=== PATIENT | male | born 1990 | race Caucasian/White ===

== ENCOUNTER 2018-09-19 17:34 | Emergency (ER) | payer MEDICAID ==
[2018-09-19 17:34] VITALS: BMI 28.0
[2018-09-19] MEDS ORDERED: Sodium Chloride 0.9% 1,000 ML IV STA (18:14)
[2018-09-19] MEDS ORDERED: Atrop/Hyosc/Scopal/PB Elixir (120 ml) PO STA (18:52)
[2018-09-19] MEDS ORDERED: Alum-Mag Hydrox-Simethicone Susp (30 mL) PO STA (18:52)
[2018-09-19 18:55] LABS: BASO # 0.08 K/mm3 (0.0-2.0); BASO % 0.8 % (0.0-3.0); EOS # 0.6 (0.0-0.7); EOS % 5.4 % (1.5-5.0); HEMOGLOBIN 15.4 g/dL (14.0-18.0); LYMPH # 2.5 (1.2-3.4); MEAN CELL VOLUME 88.2 fl (80.0-105.0); MEAN CORPUSCULAR HEMOGLOBIN 29.7 pg (25.0-35.0); MEAN CORPUSCULAR HGB CONC 33.6 g/dl (31.0-37.0); MEAN PLATELET VOLUME 10.6 fl (7.0-11.0); MONO # 0.7 (0.1-0.6); MONO % 6.9 % (1.0-6.0); RBC 5.19 10^6/uL (3.5-6.1); RED CELL DISTRIBUTION WIDTH 13.5 % (11.5-14.5); WHITE BLOOD COUNT 10.2 10^3/uL (4.5-11.0)
[2018-09-19 19:03] LABS: INR 1.05; PARTIAL THROMBOPLASTIN TIME 36.8 Seconds (26.9-38.3); PROTHROMBIN TIME 11.6 SECONDS (9.4-12.5)
[2018-09-19 19:04] LABS: ALB/GLOB RATIO 1.5 (1.1-1.8); ALBUMIN 4.5 g/dL (3.0-4.8); ALT/SGPT 18 U/L (7-56); AST/SGOT 29 U/L (17-59); BLOOD UREA NITROGEN 19 mg/dL (7-21); CALCIUM 9.4 mg/dL (8.4-10.5); GFR NON-AFRICAN AMERICAN > 60; LIPASE 116 U/L (23-300)
[2018-09-19 19:15] VITALS: RESP 18; O2SAT 100
[2018-09-19 19:15] LABS: TROPONIN I 0.02 ng/mL
--- NOTE | 2018-09-19 20:09 | ED PDOC ---
Arrival/HPI - General Chief Complaint: Abdominal Pain Time Seen by Provider: 09/19/18 17:37 Historian: Patient - History of Present Illness Narrative History of Present Illness (Text): 28 y/o male with no significant PMH presents to the ED c/o abdominal pain x 3 days. Pain is sharp and burning, located to epigastrum and RUQ. Has not taken any medication for pain. Tolerating PO per baseline. Denies fever, chills, nausea, vomiting, abdominal pain, back pain, urinary symptoms, testicular pain or swelling, or any other associated symptoms. Past Medical History - Provider Review Nursing Documentation Reviewed: Yes - Infectious Disease Hx of Infectious Diseases: None - Tetanus Immunization Tetanus Immunization: Unknown - Cardiac Hx Cardiac Disorders: No - Pulmonary Hx Asthma: Yes Hx Bronchitis: Yes - Neurological Hx Neurological Disorder: No - HEENT Hx HEENT Disorder: No - Renal Hx Renal Disorder: No - Endocrine/Metabolic Hx Endocrine Disorders: No - Hematological/Oncological Hx Blood Disorders: No - Integumentary Hx Dermatological Disorder: No - Musculoskeletal/Rheumatological Hx Musculoskeletal Disorders: No - Gastrointestinal Hx Gastrointestinal Disorders: No - Genitourinary/Gynecological Hx Genitourinary Disorders: No - Psychiatric Hx Anxiety: Yes Hx Bipolar Disorder: Yes Hx Depression: Yes Hx Emotional Abuse: No Hx Hallucinations: No Hx Panic Disorder: No Hx Post Traumatic Stress Disorder: Yes Hx Psychosis: No Hx Physical Abuse: No Hx Schizophrenia: No Hx Sexual Abuse: No Hx Substance Use: No - Past Surgical History Past Surgical History: No Previous - Anesthesia Hx Anesthesia: No Hx Anesthesia Reactions: No Hx Malignant Hyperthermia: No - Suicidal Assessment Feels Threatened In Home Enviroment: No Family/Social History - Physician Review Nursing Documentation Reviewed: Yes Family/Social History: No Known Family HX Smoking Status: Current Some Days Smoker Hx Alcohol Use: No Hx Substance Use: No Hx Substance Use Treatment: No Allergies/Home Meds Allergies/Adverse Reactions: Allergies grape Allergy (Verified 10/04/15 14:17) RASH seafood Allergy (Uncoded 10/04/15 14:17) ANAPHYLAXIS Review of Systems - Review of Systems Constitutional: Normal. absent: Fevers Eyes: Normal. absent: Vision Changes ENT: Normal. absent: Sore Throat, Sinus Congestion Respiratory: Normal. absent: SOB, Cough Cardiovascular: Normal. absent: Chest Pain, Palpitations, Syncope Gastrointestinal: Abdominal Pain. absent: Stool Changes, Constipation, Diarrhea, Nausea, Vomiting, Appetite Changes Genitourinary Male: Normal. absent: Dysuria, Frequency Musculoskeletal: Normal. absent: Back Pain, Neck Pain Skin: Normal. absent: Rash Neurological: Normal. absent: Headache, Dizziness Physical Exam Vital Signs Reviewed: Yes Vital Signs Temp Pulse Resp BP Pulse Ox 09/19/18 19:14 98.1 F 102 H 18 127/77 100 09/19/18 17:34 98.5 F 119 H 20 143/74 97 Temperature: Afebrile Blood Pressure: Normal Pulse: Tachycardic Respiratory Rate: Normal Appearance: Positive for: Well-Appearing, Non-Toxic, Comfortable Pain Distress: None Mental Status: Positive for: Alert and Oriented X 3 - Systems Exam Head: Present: Atraumatic, Normocephalic Pupils: Present: PERRL Extroacular Muscles: Present: EOMI Conjunctiva: Present: Normal Mouth: Present: Moist Mucous Membranes Neck: Present: Normal Range of Motion. No: Meningeal Signs Respiratory/Chest: Present: Clear to Auscultation, Good Air Exchange. No: Respiratory Distress, Accessory Muscle Use Cardiovascular: Present: Regular Rate and Rhythm, Normal S1, S2, Peripheal Pulses Present Abdomen: Present: Tenderness (RUQ, epigastric), Normal Bowel Sounds. No: Distention, Peritoneal Signs Back: Present: Normal Inspection. No: CVA Tenderness Upper Extremity: Present: Normal Inspection, Normal ROM, NORMAL PULSES, Neurovascularly Intact, Capillary Refill < 2s. No: Cyanosis, Edema, Temperature Abnormalties Lower Extremity: Present: Normal Inspection, NORMAL PULSES, Normal ROM, Neurovascularly Intact, Capillary Refill < 2 s. No: Edema, Temperature Abnormalties Neurological: Present: GCS=15, CN II-XII Intact, Speech Normal, Motor Func Grossly Intact, Normal Sensory Function, Gait Normal Skin: Present: Warm, Dry, Normal Color. No: Rashes Psychiatric: Present: Alert, Oriented x 3, Normal Insight, Normal Concentration, Normal Affect, Normal Mood Medical Decision Making ED Course and Treatment: 09/20/18 03:50 The patient is choosing to leave against medical advice. I have personally explained to the patient that choosing to do so may result in permanent bodily harm, disability, or . I have discussed at great length that without further evaluation and monitoring there may be unforeseen circumstances and/or deterioration causing permanent bodily harm or as a result of their choice. The patient is alert, oriented, and shows the mental capacity to make clear decisions regarding the patients health care at this time. The patient continues to wish to leave against medical advice. In light of the patients decision to leave against medical advice, follow-up has been arranged and the patient is aware of the importance to following up as instructed. The patient has been advised that they should return to the emergency room immediately if they change their mind at any time, or if their condition begins to change or worsen in any way. - Lab Interpretations Lab Results: PT 11.6 SECONDS (9.4-12.5) 09/19/18 18:50 INR 1.05 09/19/18 18:50 APTT 36.8 Seconds (26.9-38.3) 09/19/18 18:50 Troponin I 0.02 ng/mL 09/19/18 18:50 Total Bilirubin 0.4 mg/dL (0.2-1.3) 09/19/18 18:50 AST 29 U/L (17-59) 09/19/18 18:50 ALT 18 U/L (7-56) 09/19/18 18:50 Alkaline Phosphatase 59 U/L (38-126) 09/19/18 18:50 Total Protein 7.5 g/dL (5.8-8.3) 09/19/18 18:50 Albumin 4.5 g/dL (3.0-4.8) 09/19/18 18:50 Globulin 3.0 gm/dL 09/19/18 18:50 Albumin/Globulin Ratio 1.5 (1.1-1.8) 09/19/18 18:50 Lipase 116 U/L (23-300) 09/19/18 18:50 - RAD Interpretation Narrative RAD Interpretations (Text): 09/19/18 20:09 Abdominal US: COMMENTS: The liver is of increased echogenicity without evidence of mass or defect measuring 13.87 x 11.33 cm. There is no intra or extrahepatic biliary ductal dilatation. The common bile duct measures 0.29 cm. The gallbladder is physiologically distended without evidence of calculi. The gallbladder wall is not thickened measuring 0.3 cm and there is no pericholecystic fluid. There is no abdominal ascites. The aorta and inferior vena cava are not visualized. The visualized portions of the pancreas are unremarkable. The spleen is of uniform echo texture and does not appear enlarged measuring 10.95 x 4.45 cm. The right kidney measures 9.98 x 4.66 x 5.09 cm and the left kidney measures 11.08 x 5.8 x 6.37 cm. Both kidneys are free of hydronephrosis. IMPRESSION: Fatty liver. Otherwise the study is unremarkable. Electronically signed on September 19, 2018 7:27:37 PM EDT by: Phil Lujan M.D., M.B.A., Certified By [employer] Trained MRI and CT Specialist Radiology Orders: 09/19/18 18:14 CHEST PORTABLE [RAD] Stat 09/19/18 18:15 ABD & PELVIS IV CONTRAST ONLY [CT] Stat ABDOMEN COMPLETE [US] Stat Lumber Driver: Radiologist - Medication Orders Current Medication Orders: Discontinued Medications Al Hydrox/Mg Hydrox/Simethicone (Maalox Plus 30 Ml) 30 ml PO STAT STA Stop: 09/19/18 18:53 Last Admin: 09/19/18 19:07 Dose: 30 ml Belladonna/Phenobarbital ( Elixir) 5 ml PO STAT STA Stop: 09/19/18 18:53 Last Admin: 09/19/18 19:08 Dose: 5 ml Famotidine (Pepcid) 20 mg IVP STAT STA Stop: 09/19/18 18:15 Last Admin: 09/19/18 19:07 Dose: 20 mg IVP Administration Document 09/19/18 19:07 [facility] (Rec: 09/19/18 19:07 [facility] [id number]) Charges for Administration # of IVP Administrations 1 Sodium Chloride (Sodium Chloride 0.9%) 1,000 mls @ 999 mls/hr IV .Q1H1M STA Stop: 09/19/18 19:14 Last Admin: 09/19/18 19:05 Dose: 999 mls/hr eMAR Start Stop Document 09/19/18 19:05 [facility] (Rec: 09/19/18 19:07 [facility] [id number]) Intravenous Solution Start Date 09/19/18 Start Time 18:30 Lidocaine HCl (Lidocaine 2% Viscous) 15 ml PO STAT STA Stop: 09/19/18 18:53 Last Admin: 09/19/18 19:07 Dose: 15 ml Disposition/Present on Arrival - Present on Arrival Any Indicators Present on Arrival: No History of DVT/PE: No History of Uncontrolled Diabetes: No Urinary Catheter: No History of Decub. Ulcer: No History Surgical Site Infection Following: None - Disposition Have Diagnosis and Disposition been Completed?: Yes Diagnosis: Abdominal pain, Left against medical advice Disposition: AGAINST MEDICAL ADVICE Disposition Time: 20:40 Condition: GUARDED Discharge Instructions (ExitCare): Gastritis, Acute Abdomen (Belly Pain), Leaving Against Medical Advice Additional Instructions: Pepcid every 12 hours as needed Increase fluids Followup with GI within 2 days Followup with primary doctor within 2 days Return to ER with any new/worsening symptoms Prescriptions: Famotidine [Pepcid] 20 mg PO Q12 PRN #14 tab PRN Reason: indigestion Referrals: Lukas Rodriguez MD [Primary Care Provider] - Follow up with primary Gary Cline DO [Staff Provider] - Follow up with primary Forms: [employer] ([place])
[2018-09-19 20:42] VITALS: BP 127/79; PULSE 97; TEMP 98.2
--- NOTE | 2018-09-20 08:53 | RAD ---
Date of service: 09/19/2018 HISTORY: abd pain COMPARISON: 10/04/2015 TECHNIQUE: 1 view obtained. FINDINGS: LUNGS: No active pulmonary disease. PLEURA: No significant pleural effusion identified, no pneumothorax apparent. CARDIOVASCULAR: No aortic atherosclerotic calcification present. Normal cardiac size. No pulmonary vascular congestion. OSSEOUS STRUCTURES: No significant abnormalities. VISUALIZED UPPER ABDOMEN: Normal. OTHER FINDINGS: None. IMPRESSION: No active disease.
--- NOTE | 2018-09-20 10:53 | US ---
Date of service: 09/19/2018 HISTORY: RUQ, epigastric pain COMPARISON: None. TECHNIQUE: Grayscale imaging was performed. FINDINGS: LIVER: Measures 13.8 cm. There is diffuse increased echogenicity of the liver parenchyma. No mass. No intrahepatic bile duct dilatation. GALLBLADDER: There are no gallstones, wall thickening or pericholecystic fluid. The sonographic Luna's sign is negative. COMMON BILE DUCT: Measures 2.9 mm. No stones. No dilatation. PANCREAS: Unremarkable as visualized. No mass. No ductal dilatation. RIGHT KIDNEY: Measures 9.9cm. Normal echogenicity. No calculus, mass, or hydronephrosis. LEFT KIDNEY: Measures 11.0cm. Normal echogenicity. No calculus, mass, or hydronephrosis. SPLEEN: Normal in size and contour. No mass. AORTA: No aneurysmal dilatation. IVC: Unremarkable. OTHER FINDINGS: None. IMPRESSION: Fatty liver. No cholelithiasis or biliary dilatation. A preliminary report was provided by [employer].
== END 2018-09-19 20:40 | disposition left against medical advice (07) ==
LOC: ED 17:34
DX: R10.9 Unspecified abdominal pain (principal)
CPT/HCPCS: 71045; 76700; 80053; 82550; 83615; 83690; 84484; 85025; 85610; 85730; 96374; 99283; J7030